=== PATIENT | female | born 1990 | race African-American/Black ===

== ENCOUNTER 2018-03-06 18:16 | Emergency (ER) | payer SELFPAY ==
[2018-03-06 18:51] VITALS: BP 126/71
[2018-03-06] MEDS ORDERED: METOCLOPRAMIDE HCL ORAL SOLN 10 MG/10 ML UDCUP PO ONE (19:39)
[2018-03-06] MEDS ORDERED: LIDOCAINE 2% VISCOUS SOLN 20 ML UDCUP PO ONE (19:39)
[2018-03-06] MEDS ORDERED: MAG HYDROX/AL HYDROX/SIMETH SUSP 30 ML UDCUP PO ONE (19:39)
--- NOTE | 2018-03-06 19:40 | ER Document Report ---
HPI - HPI Pain Level: 4 Notes: Patient is a 27-year-old female with no significant past medical history who presents to the ED complaining of sensation of foreign body in her throat after trying to swallow an Aleve tablet 3 days ago. Patient states that she believes the tablet got stuck and she has now developed this feeling in the back of her throat. Patient states that she is still able to eat and drink without any difficulties. She denies any drug allergies. No other recent illness. Denies any headache, fever, head injury, neck pain, URI, chest pain, palpitations, syncope, cough, shortness of breath, wheeze, dyspnea, abdominal pain, nausea/ vomiting/diarrhea, urinary retention, dysuria, hematuria, or rash. - ROS Systems Reviewed and Negative: Yes All other systems reviewed and negative - EENT EENT: REPORTS: Sore Throat - REPRODUCTIVE Reproductive: DENIES: : Past Medical History - Social History Smoking Status: Current Every Day Smoker Chew tobacco use (# tins/day): No Frequency of alcohol use: None Drug Abuse: None Family History: Hypertension Patient has suicidal ideation: No Patient has homicidal ideation: No - Past Medical History Cardiac Medical History: Reports: Hx Hypercholesterolemia Pulmonary Medical History: Reports: Hx Asthma Neurological Medical History: Reports: Hx Migraine Renal/ Medical History: Denies: Hx Peritoneal Dialysis Psychiatric Medical History: Reports: Hx Bipolar Disorder - Immunizations Hx Diphtheria, Pertussis, Tetanus Vaccination: Yes Vertical Provider Document - CONSTITUTIONAL Agree With Documented VS: Yes Notes: PHYSICAL EXAMINATION: GENERAL: Well-appearing, well-nourished and in no acute distress. A&Ox4. Answers questions appropriately. Moves comfortably w/o notable distress HEAD: Atraumatic, normocephalic. EYES: Pupils equal round and reactive to light, extraocular movements intact, sclera anicteric, conjunctiva are normal. ENT: EAC clear b/l. TM's intact b/l without erythema, fluid, or perforation. Nares patent and with clear discharge. oropharynx mild erythema without exudates. No tonsilar hypertrophy without erythema or exudate. No palatine shift. Uvula midline w/o uvulitis. No tongue protrusion. No drooling, hoarseness, or airway compromise. Moist mucous membranes. No sinus tenderness. No obvious enlarged epiglottitis. No stridor. NECK: Normal range of motion, supple without lymphadenopathy. No rigidity/ meningismus. LUNGS: Breath sounds clear to auscultation bilaterally and equal. No wheezes rales or rhonchi. No retractions HEART: Regular rate and rhythm without murmurs, rubs, gallops. ABDOMEN: Soft, nontender, nondistended abdomen. No guarding, no rebound. No masses appreciated. Normal bowel sounds present. No CVA tenderness bilaterally. NEUROLOGICAL: Normal speech, normal gait. Normal sensory, motor exams PSYCH: Normal mood, normal affect. SKIN: Warm, Dry, normal turgor, no rashes or lesions noted. - INFECTION CONTROL TRAVEL OUTSIDE OF THE [place] IN LAST 30 DAYS: No Course - Re-evaluation Re-evalutation: 03/06/18 19:[address] Duran who is in agreement with dispo/plan: Patient is an afebrile, well-hydrated, 27-year-old female who presents to the ED with pill esophagitis. Vitals are acceptable without any significant tachycardia, tachypnea, or hypoxia. PE is otherwise unremarkable. Patient is tolerating p.o. without any difficulties and is nontoxic-appearing. GI cocktail was given and did improve her symptoms. No labs or imaging warranted at this time based on H&P. Low suspicion for any meningitis, sepsis, peritonsillar/pharyngeal abscess, respiratory compromise, Fito's, angioedema, epiglottitis, uvulitis, or other emergent systemic condition at this time. Patient is aware this condition can change from initial presentation and she needs to monitor symptoms closely. Rx carafate. Conservative measures otherwise for symptoms. Recheck with your PCM in 3-5 days. Consider consult with gastroenterology. Return to the ED with any worsening/concerning symptoms otherwise as reviewed in discharge. Patient is in agreement. - Vital Signs Vital signs: Temp Pulse Resp BP Pulse Ox 98.3 F 71 16 126/71 H 100 03/06/18 18:49 03/06/18 18:49 03/06/18 18:49 03/06/18 18:49 03/06/18 18:49 Discharge - Discharge Clinical Impression: Pill esophagitis Condition: Stable Disposition: HOME, SELF-CARE Instructions: Esophagitis ([facility]) Additional Instructions: Maintain adequate fluid intake Take meds as directed Salt water gargles, throat sprays, mouthwash rinse, peroxide gargles tylenol/ibuprofen as needed F/u: with your PCM in 3-5 days for a recheck Consider consult with gastroenterology for further evaluation and management Return to the ED with any fever, worsening pain, chest pain, neck pain/stiffness , shortness of breath, cough, drooling, trouble swallowing/breathing, abdominal pain, n/v/d, rash, or worsening/concerning symptoms otherwise. Prescriptions: Omeprazole 20 mg PO DAILY #15 tablet. Sucralfate [Carafate] 1 gm PO QID PRN #420 ml PRN Reason: Forms: Elevated Blood Pressure, Smoking Cessation Education Referrals: MELCHOR LYON MD [Primary Care Provider] - Follow up as needed SAURABH OLSEN MD [ACTIVE STAFF] - Follow up as needed DESHAUN STALLINGS MD [ACTIVE STAFF] - Follow up as needed
== END 2018-03-06 19:57 | disposition home or self-care (01) ==
LOC: ER 18:16
DX: K20.8 Other esophagitis (principal); F17.200 Nicotine dependence, unspecified, uncomplicated; J45.909 Unspecified asthma, uncomplicated
CPT/HCPCS: 99283; J3490

== ENCOUNTER 2018-05-10 06:03 | Emergency (ER) | payer SELFPAY ==
[2018-05-10] MEDS ORDERED: IPRATROPIUM/ALBUTEROL 0.5-2.5 MG/3 ML AMPUL NEB ONE (07:28)
[2018-05-10] MEDS ORDERED: PREDNISONE 20 MG TABLET PO ONE (07:29)
--- NOTE | 2018-05-10 07:34 | ER Document Report ---
HPI - HPI Time Seen by Provider: 05/10/18 07:12 Pain Level: 5 Notes: Patient is a 27-year-old female who presents to the emergency department with chief complaint of productive cough over the last 10 days. Patient also reports fever and chills over the last 3-4 days. She reports that she gets into coughing spells when she takes a deep breath. She also reports mild nasal congestion. Patient is also complaining of dysuria, cloudy urine and urinary frequency. Patient has past medical history of asthma. She states she is a non -smoker but when asked she states that she quit 10 days ago. - REPRODUCTIVE LMP: 04/30 Reproductive: DENIES: : Past Medical History - General Information source: Patient - Social History Smoking Status: Current Some Day Smoker Frequency of alcohol use: None Drug Abuse: None Family History: Hypertension - Past Medical History Cardiac Medical History: Reports: Hx Hypercholesterolemia Pulmonary Medical History: Reports: Hx Asthma Neurological Medical History: Reports: Hx Migraine Renal/ Medical History: Denies: Hx Peritoneal Dialysis Psychiatric Medical History: Reports: Hx Bipolar Disorder - Immunizations Hx Diphtheria, Pertussis, Tetanus Vaccination: Yes Vertical Provider Document - CONSTITUTIONAL Notes: PHYSICAL EXAMINATION: GENERAL: Well-appearing, well-nourished and in no acute distress. HEAD: Atraumatic, normocephalic. EYES: Pupils equal round extraocular movements intact, conjunctiva are normal. ENT: Nares patent, throat mildly erythematous but without exudates. No tonsillar swelling noted, uvula midline, no evidence of peritonsillar abscess. NECK: Normal range of motion, cervical lymphadenopathy noted. LUNGS: Diminished breath sounds on the right side, mild expiratory wheezing noted, no respiratory distress. Musculoskeletal: Normal range of motion NEUROLOGICAL: Normal speech, normal gait. PSYCH: Normal mood, normal affect. SKIN: Warm, Dry, normal turgor, no rashes or lesions noted. - INFECTION CONTROL TRAVEL OUTSIDE OF THE [place] IN LAST 30 DAYS: No Course - Re-evaluation Re-evalutation: 05/10/18 07:34 We will send patient for a chest x-ray and a urinalysis. Patient will receive a DuoNeb and 60 mg of prednisone p.o., will reassess after all items resulted. 05/10/18 09:03 X-rays negative for any acute findings to include infiltrates or pneumothorax. Urinalysis is unremarkable. We will send a urine culture. Patient reports she is feeling better after receiving the DuoNeb and prednisone. Patient will be discharged home with likely bronchitis with bronchospasm. - Vital Signs Vital signs: Temp Pulse Resp BP Pulse Ox 97.8 F 73 14 100/68 100 05/10/18 06:04 05/10/18 06:04 05/10/18 06:04 05/10/18 06:04 05/10/18 06:04 Discharge - Discharge Clinical Impression: Bronchitis Condition: Stable Disposition: HOME, SELF-CARE Additional Instructions: Bronchitis with Bronchospasm (Wheezing) You have bronchitis with bronchospasm (wheezing). Sometimes people develop wheezing with a chest cold. This occurs either because of an underlying tendency toward asthma or because the virus itself irritates the bronchial tubes. This irritation causes cough, shortness of breath, and wheezing. Emergency treatment of bronchospasm may include adrenaline shots or bronchodilator aerosol. You may feel lightheaded and have a rapid pulse for an hour or two. Rest and get plenty of fluids. At home, we'll treat you with a bronchodilator inhaler. Corticosteroids may be required for some patients. Until you recover, avoid chemical fumes, dusts, pollens, and exercising in very cold or dry air. If you smoke, stop now! Most cases of bronchitis get better without antibiotics. We prescribe antibiotics when we believe bacteria are damaging your airways, or if there's high risk the bronchitis will worsen into pneumonia. Increase your fluid intake. A cool mist humidifier may make your lungs more comfortable. An expectorant (cough medicine that loosens phlegm) can help. Repeated episodes of bronchitis and bronchospasm may result in lung damage -- for example, chronic bronchitis, recurrent pneumonias, or emphysema. If you develop a fever, increased wheezing, chest pain, or severe shortness of breath, you should contact the doctor immediately. Your urinalysis and chest x-ray were normal today. Please take medications as prescribed as they will help with your symptoms. Antibiotics are not indicated at this time. Drink plenty of fluids. Take acetaminophen or ibuprofen for any fever or pain. Follow-up with your primary care provider if not improving over the next 2-3 days. Prescriptions: Fluticasone Propionate [Flonase Nasal Harriet 50 Mcg/Harriet 16 gm] 2 sprays NASL Q12 #1 inhaler Prednisone [Deltasone 20 mg Tablet] 3 tab PO DAILY 4 Days #12 tablet Forms: Return to Work Referrals: MELCHOR LYON MD [Primary Care Provider] - Follow up as needed
--- NOTE | 2018-05-10 08:15 | RADIOLOGY REPORT (SQ) ---
EXAM DESCRIPTION: CHEST 2 VIEWS COMPLETED DATE/TIME: 05/10/2018 7:50 am REASON FOR STUDY: fever, cough, hx of asthma COMPARISON: None. EXAM PARAMETERS: NUMBER OF VIEWS: two views TECHNIQUE: Digital Frontal and Lateral radiographic views of the chest acquired. RADIATION DOSE: NA LIMITATIONS: none FINDINGS: LUNGS AND PLEURA: No opacities, masses or pneumothorax. No pleural effusion. MEDIASTINUM AND HILAR STRUCTURES: No masses or contour abnormalities. HEART AND VASCULAR STRUCTURES: Heart normal size. No evidence for failure. BONES: No acute findings. HARDWARE: None in the chest. OTHER: No other significant finding. IMPRESSION: NO ACUTE RADIOGRAPHIC FINDING IN THE CHEST. TECHNICAL DOCUMENTATION: JOB ID: [id number] [employer]- All Rights Reserved Reading location - IP/workstation name: [email or web address]
[2018-05-10 08:55] LABS: AMORPHOUS SEDIMENT,URINE TRACE /HPF; APPEARANCE,URINE SLIGHTLY-CLOUDY; BILIRUBIN,URINE NEGATIVE (NEGATIVE); COLOR,URINE YELLOW; GLUCOSE, URINE NEGATIVE (NEGATIVE); KETONES,URINE NEGATIVE (NEGATIVE); LEUKOCYTE ESTERASE,URINE NEGATIVE (NEGATIVE); NITRITE,URINE NEGATIVE (NEGATIVE); PROTEIN,URINE NEGATIVE (NEGATIVE); URINE SPECIFIC GRAVITY 1.012; UROBILINOGEN,URINE NEGATIVE mg/dL (<2.0)
[2018-05-10] MEDS ORDERED: ALBUTEROL SULFATE HFA (90 MCG/PUFF) 8 GM MDI (1 MDI/ER DISP) IH ONE (09:03)
[2018-05-10 09:41] VITALS: BP 129/86
== END 2018-05-10 09:41 | disposition home or self-care (01) ==
LOC: ER 06:03
DX: J45.909 Unspecified asthma, uncomplicated (principal); R05 Cough; R50.9 Fever, unspecified; R09.81 Nasal congestion; R30.0 Dysuria; R35.0 Frequency of micturition; R39.89 Other symptoms and signs involving the genitourinary system
CPT/HCPCS: 94640; 99283; 81001; 71046; J7512; J3490; J7620